=== PATIENT | female | born 1970 | race Caucasian/White ===

== ENCOUNTER 2025-05-07 15:33 | Outpatient (AMB) | payer BC, SELFPAY ==
--- OUTSIDE RECORDS SUMMARY | 2025-03-10 18:31 | XMS_ITS ---
Author Organization [facility] Address [address] [place], [place] [id number] Care Team Providers Care Field Reporter Name Role Phone AGUSTIN BRIAN Primary Care Provider REASON FOR VISIT New Refill Request MEDICATIONS Medication SIG (Take, Route, Fr equency, Duration) Notes Start Date End Date Status Percocet 5-325 MG 1 tablet as needed o rally every 6 hours for pain 03/11/2025 Active Encounters Encounter Location Date Provider Diagnosis [facility] [address] [place] [address] 03/10/2025 AGUSTIN BRIAN PLAN OF TREATMENT Medication Medication Name Sig Start Date Stop Date Notes Percocet 5-325 MG 1 tablet as needed o rally every 6 hours for pain 03/11/2025 Next Appt Details Provider Name:AGUSTIN BRIAN , 08/05/2025 01:00:00 PM, [address] [place], [address],
--- OUTSIDE RECORDS SUMMARY | 2025-03-11 05:07 | XMS_ITS ---
Author Organization [facility] Address [address] [place], [place] [id number] Care Team Providers Care Fusion Analyst Name Role Phone AGUSTIN BRIAN Primary Care Provider [phone] REASON FOR VISIT New Refill Request MEDICATIONS Medication SIG (Take, Route, Fr equency, Duration) Notes Start Date End Date Status Metaxalone 800 MG 1 tablet Orally ever y 8 hrs for 30 days Active Encounters Encounter Location Date Provider Diagnosis [facility] [address] [place] [address] 03/11/2025 AGUSTIN BRIAN PLAN OF TREATMENT Medication Medication Name Sig Start Date Stop Date Notes Metaxalone 800 MG 1 tablet Orally every 8 hrs for 30 days Next Appt Details Provider Name:AGUSTIN BRIAN , 08/05/2025 01:00:00 PM, [address] [place], [address],
--- OUTSIDE RECORDS SUMMARY | 2025-03-11 07:46 | XMS_ITS ---
Author Organization [facility] Address [address] [place], [place] [phone] Care Team Providers Care Reed Maker Name Role Phone AGUSTIN BRIAN Primary Care Provider [phone] REASON FOR VISIT 2/need ok to fill Oxtcodone Encounters Encounter Location Date Provider Diagnosis [address] [address] 03/11/2025 AGUSTIN BRIAN PLAN OF TREATMENT Next Appt Details Provider Name:AGUSTIN BRIAN , 08/05/2025 01:00:00 PM, [address] [place], [address],
--- OUTSIDE RECORDS SUMMARY | 2025-03-26 11:37 | XMS_ITS ---
Author Organization [facility] Address [address] [place], [place] [phone] Care Team Providers Care Marketing Technology Specialist Name Role Phone AGUSTIN BRIAN Primary Care Provider [phone] REASON FOR VISIT New Refill Request MEDICATIONS Medication SIG (Take, Route, Fr equency, Duration) Notes Start Date End Date Status Percocet 5-325 MG 1 tablet as needed o rally every 6 hours for pain 03/27/2025 Active Encounters Encounter Location Date Provider Diagnosis [facility] [address] [place] [phone] 03/26/2025 AGUSTIN BRIAN PLAN OF TREATMENT Medication Medication Name Sig Start Date Stop Date Notes Percocet 5-325 MG 1 tablet as needed o rally every 6 hours for pain 03/27/2025 Next Appt Details Provider Name:AGUSTIN BRIAN , 08/05/2025 01:00:00 PM, [address] [place], [address],
--- OUTSIDE RECORDS SUMMARY | 2025-03-27 09:25 | XMS_ITS ---
Author Organization [facility] Address [address] [place], [place] [phone] Care Team Providers Care Mysql Database Administrator Name Role Phone AGUSTIN BRIAN Primary Care Provider REASON FOR VISIT RE:RE:Sciatica flare up Encounters Encounter Location Date Provider Diagnosis [address] [address] 03/27/2025 AGUSTIN BRIAN PLAN OF TREATMENT Next Appt Details Provider Name:AGUSTIN BRIAN , 08/05/2025 01:00:00 PM, [address] [place], [address],
--- OUTSIDE RECORDS SUMMARY | 2025-04-16 13:13 | XMS_ITS ---
Author Organization [facility] Address [address] [place], [place] [phone] Care Team Providers Care Pasting Inspector Name Role Phone AGUSTIN BRIAN Primary Care Provider [phone] XIOM[place] DE DIOS [phone] REASON FOR VISIT New Refill Request MEDICATIONS Medication SIG (Take, Route, Fr equency, Duration) Notes Start Date End Date Status Percocet 5-325 MG 1 tablet as needed o rally every 6 hours for pain 04/17/2025 Active Encounters Encounter Location Date Provider Diagnosis [facility] [address] [place] [address] 04/16/2025 XIOMARA DE DIOS PLAN OF TREATMENT Medication Medication Name Sig Start Date Stop Date Notes Percocet 5-325 MG 1 tablet as needed o rally every 6 hours for pain 04/17/2025 Next Appt Details Provider Name:AGUSTIN BRIAN , 08/05/2025 01:00:00 PM, [address] [place], [address],
--- OUTSIDE RECORDS SUMMARY | 2025-04-17 03:25 | XMS_ITS ---
Author Organization [facility] Address [address] [place], [place] [phone] Care Team Providers Care Electrical Accessories I Assembler Name Role Phone AGUSTIN BRIAN Primary Care Provider [phone] REASON FOR VISIT New Refill Request MEDICATIONS Medication SIG (Take, Route, Fr equency, Duration) Notes Start Date End Date Status Metaxalone 800 MG 1 tablet Orally ever y 8 hrs for 30 days Active Encounters Encounter Location Date Provider Diagnosis [facility] [address] [place] [address] 04/17/2025 AGUSTIN BRIAN PLAN OF TREATMENT Medication Medication Name Sig Start Date Stop Date Notes Metaxalone 800 MG 1 tablet Orally every 8 hrs for 30 days Next Appt Details Provider Name:AGUSTIN BRIAN , 08/05/2025 01:00:00 PM, [address] [place], [address],
--- OUTSIDE RECORDS SUMMARY | 2025-04-30 07:19 | XMS_ITS ---
Author Organization [facility] Address [address] [place], [place] [phone] Care Team Providers Care Manager Nuclear Name Role Phone AGUSTIN BRIAN Primary Care Provider [phone] REASON FOR VISIT rescheduled appt Encounters Encounter Location Date Provider Diagnosis [facility] [address] [place] [address] 04/30/2025 AGUSTIN BRIAN PLAN OF TREATMENT Next Appt Details Provider Name:AGUSTIN BRIAN , 08/05/2025 01:00:00 PM, [address] [place], [address],
--- OUTSIDE RECORDS SUMMARY | 2025-05-05 07:40 | XMS_ITS ---
Author Organization [facility] Address [address] [place], [place] [phone] Care Team Providers Care Porter Baggage Name Role Phone AGUSTIN BRIAN Primary Care Provider ALLERGIES Allergen (clinical drug ingredient) Drug/Non Drug Allergy documented on EMR Reaction Allergy Type Onset Date Status egg yolk (chicken) allergenic extract Egg White (Diagnostic) Unknown Drug Allergy Active REASON FOR VISIT 3 month follow MEDICATIONS Medication SIG (Take, Route, Frequency, Duration) Notes Start Date End Date Status Gabapentin 600 MG 1 tablet Orally thre e times a day Active Losartan Potassium 100 MG 1 tablet Orally Once a day for 90 days Active Lidocaine 5 % 1 application as nee ded applied topically Once a day 09/18/2008 Active LORazepam 1 MG 1 tablet Orally Once prior to test 07/03/2023 Active Omeprazole 20 MG 1 capsule 30 minutes before morning meal orally once a day Active CPAP Mask Active predniSONE 20 MG 3 tabs at the same t george in the morning for 3 days, then 2 tabs for 3 days, then 1 tab for 3 days Orally Once a day 02/26/2025 Not-Takin g Vitamin D (Cholecalciferol) 25 MCG (1000 UT) 2 capsules Orally Once a day Active Iron (Ferrous Sulfate) 325 (65 Fe) MG 1 tablet Orally Once a day for 30 day(s) Not-Taking CPAP . Active Diclofenac Sodium 3 % 1 application Exte rnally Twice a day 02/26/2025 Active Metaxalone 800 MG 1 tablet Orally ever y 8 hrs for 30 days Active Percocet 5-325 MG 1 tablet as needed orally every 6 hours for pain 04/17/2025 Active SOCIAL HISTORY Tobacco Use: Social History Observation Description Date Details (start date - stop date) Former Smoker NA - NA Sex Assigned At : Social History Observation Description Sex Assigned At Unknown Smoking Question Answer Notes Are you a: former smoker Section Notes: pt smoked 1/2 pack a day, [facility] at age 35 quit cigarettes 05/2023, stopped vaping nicotine 07/2024 VITAL SIGNS Height 62.75 in 05/05/2025 Weight 240 lbs 05/05/2025 Blood pressure systolic 136 mm Hg 05/05/20 25 Blood pressure diastolic 86 mm Hg 025 BMI 42.85 kg/m2 05/05/2025 Encounters Encounter Location Date Provider Diagnosis [facility] [address] [place] [address] 05/05/2025 AGUSTIN BRIAN Essential hypertension I10 ; Type 2 diabetes mellitus without complication, without long-term current use of insulin E11.9 ; BMI 40.0-44.9, adult Z68.41 ; Sacroiliitis, not elsewhere classified M46.1 and Encounter for long-term (current) use of high-risk medication Z79.899 ASSESSMENTS Encounter Date Diagnosis Assessment Notes Treatment Notes Treatment Clinical Notes Section Notes 05/05/2025 Essential hypertension (ICD-10 - I10) Labs ordered. Blood pressure under fair control. Continue losartan 100 mg once a day. Discussed diet, exercise and weight loss. She has lost weight since her last visit and continues to work on this. Recheck in 3 months. Return sooner as needed. 05/05/2025 Type 2 diabetes mellitus without complication, without long-term current use of insulin (ICD-10 - E11.9) Labs ordered. Most recent hemoglobin A1c was 6.0. Discussed diet, exercise and continued weight loss. Encouraged good diabetic diet. Recheck in 3 months. 05/05/2025 BMI 40.0-44.9, adult (ICD-10 - Z68.41) Labs ordered. Continues to work on weight loss with diet and trying to get some more exercise. Limited due to back issues. She has lost weight since her last visit. We will continue to monitor and recheck in 3 months. 05/05/2025 Sacroiliitis, not elsewhere classified (ICD-10 - M46.1) Patient will be following up with physiatry. Continue with metaxalone, lidocaine patch, Percocet as needed. Ice and heat as discussed. Exercises as discussed. 05/05/2025 Encounter for long-term (current) use of high-risk medication (ICD-10 - Z79.899) Urine drug screen ordered. Patient using medication appropriately at this time. We will continue to monitor and recheck in 3 months. PLAN OF TREATMENT Treatment Notes Assessment Notes Essential hypertension Labs ordered. Blo od pressure under fair control. Continue losartan 100 mg once a day. Discussed diet, exercise and weight loss. She has lost weight since her last visit and continues to work on this. Recheck in 3 months. Return sooner as needed. Type 2 diabetes mellitus wit hout complication, without long-term current use of insulin Labs ordered. Most recent hemoglobin A1c was 6.0. Discussed diet, exercise and continued weight loss. Encouraged good diabetic diet. Recheck in 3 months. BMI 40.0-44.9, adult Labs ordered. Shaheen carleyes to work on weight loss with diet and trying to get some more exercise. Limited due to back issues. She has lost weight since her last visit. We will continue to monitor and recheck in 3 months. Sacroiliitis, not elsewhere classified P atient will be following up with physiatry. Continue with metaxalone, lidocaine patch, Percocet as needed. Ice and heat as discussed. Exercises as discussed. Encounter for long-term (cur rent) use of high-risk medication Urine drug screen ordered. Patient using medication appropriately at this time. We will continue to monitor and recheck in 3 months. Pending Test Test Name Order Date XR Hip Right with Pelvis 2-3 views 05/05 Future Test Test Name Order Date Drug Screen 17 w/Conf, [id number] Next Appt Details Follow Up: X-ray ordered ple ase give copy of order. Labs ordered. Continue current treatments as prescribed. Follow-up in 3 months for recheck on medication, diabetes and hypertension and 40-minute slot., Reason: Provider Name:AGUSTIN BRIAN , 08/05/2025 01:00:00 PM, [address] [facility], [place], [address], Progress Notes * Examination Category Sub-Category Detail Notes Category Not es General Examination HEENT: NC/AT, EOMI,PERRL Neck: supple, no lymphaden opathy, no thyromegaly, normal ROM of C spine, non- tender, no carotid bruit, JVP flat Heart: RRR, no murmurs, cli cks or rubs, normal S1S2 Lungs: clear to auscultatio n Abdomen: soft, non tender/non distended Extremities: normal ROM, no clubb ing , cyanosis, or edema General Appearance no apparent distress , pleasant, obese Skin: normal, no rash Neuro alert and oriented x 3, CN 2-12 intact, motor 5/5 bilaterally proximally and distally in all 4 extremities, DTRs 1-2+ in all 4 exremities, sensation light touch intact, ambulates with aid of cane due to back pain. Back: Tenderness with palp ation in the right SI joint and buttock area. Pain is worsened with straight leg raising but no pain radiating down the leg in the office with straight leg raising. No midline bony deformities or drop-offs. No obvious spasms. History and Physical Notes * HPI (History of Present Illness) Category Sub-Category Detail Notes Category Not es General Patient here fo r 3-month follow-up on diabetes, blood pressure, hyperlipidemia, sleep apnea, sacroiliitis with right sided lumbar radiculopathy getting injections from physiatry and medication review due to controlled substances. Patient currently using medications appropriately. Taking Percocet only as needed. Currently on gabapentin 600 mg 3 times a day. Recent injection which seems to have helped but then had reactivated her pain with prolonged sitting and is going back to see physiatry in the next few days. Will get x-ray of her right hip and pelvis just to make sure there is not anything going on and there that is being masked. She continues on losartan 100 mg once a day for her blood pressure which was under fair control today. She is continuing on omeprazole 20 mg daily for GERD. For her back issues she continues on metaxalone 800 mg every 8 hours, Percocet 5/325 mg 1 tablet every 6 hours if needed, lidocaine 5% patch. Currently stable. She does use a CPAP nightly. Here today no acute complaints. Denies any headaches, chest pain, shortness of breath, abdominal pain, nausea, vomiting, diarrhea, blood per rectum, black or tarry stools or any urinary issues.
--- OUTSIDE RECORDS SUMMARY | 2025-05-06 07:40 | XMS_ITS ---
Author Organization [facility] Address [address] [place], [place] [phone] Care Team Providers Care Egg Crater Name Role Phone AGUSTIN BRIAN Primary Care Provider REASON FOR VISIT 3 month follow Encounters Encounter Location Date Provider Diagnosis [facility] [address] [place] [address] 05/06/2025 AGUSTIN BRIAN PLAN OF TREATMENT Next Appt Details Provider Name:AGUSTIN BRIAN , 08/05/2025 01:00:00 PM, [address] [place], [address],
--- NOTE | 2025-05-07 15:34 | A.PHYSOV ---
Vital Signs 05/07/25 15:37 Height 5 ft 2.5 in Weight 240 lb BMI 43.2 Intake Visit Reasons: F/U AFTER INJECTION 04/04/2025 Intake Note: Patient is a 54 year old female here today for follow up after having a right L4 TFESI on 04/04/2025. Textile Converter Required: No Allergies egg (eggs) Allergy (Unknown, Verified 05/07/25 15:38) Unknown HPI Comments Details: Ms. Hennessy is a 54-year-old female seen in evaluation today for lumbar radiculitis to the right lower extremity. Patient underwent right L4 TFESI 04/04/2025 and she reports 30% reduction of her pain. Patient did see 50% reduction of her pain from right SI joint injection in November. She still has a pain level today of 6/10. Her symptoms are worse after standing or sitting for a period of time. She has been using gabapentin for pain. She denies any incontinence, saddle anesthesia urinary retention. Procedure: Right SI joint injection 11/28/2024 50% reduction of her pain Right L4 TFESI 04/04/2025 30% reduction of her pain [facility] Surgical History Previous section Social History Alcohol intake: current Comment: rare Patient Tobacco Use Status: Never used Tobacco Review of Systems Narrative Right-sided low back pain with radiculopathy. No incontinence, saddle anesthesia urinary retention. Physical Exam Exam Exam: Lumbar Spine: Examination of her lumbar spine, there is no visible swelling or deformity. She is tender over the right lower lumbar facets as well as a right SI joint to palpation. She has full range of motion of the lumbar spine. She denies any increase in pain with facet loading. Special Tests: Lhermittes sign was negative Heel Toe walk is normal Left straight leg raise: Negative Right straight leg raise: Negative Special tests Calvin test is negative Ganslen's test is negative SI Joint compression test negative Dillon test negative Piriformis stretch is negative Lower Extremities: Full range of motion bilateral lower extremities. No calf pain or edema. Neuro: Sensation: Intact to lower extremities bilaterally Strength L2 (Psoas): 5/5 on the left and 5/5 on the right. L3 (Quads): 5/5 on the left and 5/5 on the right. L4 (Ant tibialis): 5/5 on the left and 5/5 on the right. L5 (EHL) 5/5 on the left and 5/5 on the right. S1 (Gastroc): 5/5 on the left and 5/5 on the right. DTR L4: (Patellar) Left 2 Right 2 S1: (Achilles) Left 2 Right 2 Babinski Downgoing No pathologic clonus. No involuntary movement. Vital Signs: BMI result Body Mass Index 43.2 Assessment & Plan Assessment & Plan (1) Lumbar radiculitis: Code(s): M54.16 - Radiculopathy, lumbar region Category: Medical (2) Sacroiliitis: Code(s): M46.1 - Sacroiliitis, not elsewhere classified Category: Medical Plan Ms. Hennessy is a 54-year-old female seen in evaluation today for low back pain with radiculopathy. She reports 30% reduction of her pain from right L4 TFESI. She also reports 50% reduction of her pain from right SI joint injection. Patient still feels she is unable to sit or stand for period of time therefore she is requesting accommodation from work paperwork which we will fill out and half filled out for in the past. She will continue her home exercise plan and medications as prescribed. Recommend a course of physical therapy. If her symptoms are not markedly improved I recommend she follow-up with Dr. Brady for 2nd opinion. Thank you for allowing me to participate in the care of your patient. Orders: Orders PT Evaluation and Treatment Today M46.1 - Sacroiliitis, not elsewhere classified, M54.16 - Radiculopathy, lumbar region Coding Level of Care Code Tele Est Pt Level 3 (74774) Diagnoses Lumbar radiculitis M54.16 Sacroiliitis M46.1
[2025-05-07 15:37] VITALS: BMI 43.2
--- OUTSIDE RECORDS SUMMARY | 2025-05-07 20:40 | XMS_ITS | Clinical Summary ---
Author Organization [facility] Address [address] [place] [address] Care Team Providers Care Survey Research Manager Name Role Phone Unavailable Primary Care Provider Unavailabl e Social History Tobacco Use Types Packs/Day Years Used Date Smoking Tobacco: Never Assessed Comments Unknown Sex and Gender Information Value Date Recorded Sex Assigned at Not on file Legal Sex Female 3:01 PM EDT Gender Identity Not on file Sexual Orientation Not on file Plan of Treatment Health Maintenance Due Date Last Done Comments Hepatitis C Screening 1970 Pap Smear 1986 DTaP/Tdap/Td (1 - Tdap) 1988 Hep B (1 of 3 - 19+ 3-dose series) 1989 Mammogram/Breast Imaging 2010 Pneumococcal 50+ years (1 of 1 - PCV) 2020 Zoster (Shingrix) (1 of 2) 2020 COVID-19 Vaccine ( - 2024-2 6 season) 2025 Influenza (#1) 2025 RSV (1 - 1-dose 75+ series) 2045 HPV Vaccine (No Doses Required) Completed Hep A Aged Out No longer eligi ble based on patient's age to complete this topic Hib Aged Out No longer eligi ble based on patient's age to complete this topic Meningococcal ACWY Aged Out No longer eligible based on patient's age to complete this topic
--- OUTSIDE RECORDS SUMMARY | 2025-05-07 20:42 | XMS_ITS | Patient Health Record ---
Author Organization [facility] Address [address] [place], [place] [id number] Care Team Providers Care Parts Clerk Name Role Phone SNEHAL AGUSTIN Primary Care Provider [phone] XIOMARA DE DIOS Unavailable [phone] ALLERGIES Allergen (clinical drug ingredient) Drug/Non Drug Allergy documented on EMR Reaction Allergy Type Onset Date Status egg yolk (chicken) allergenic extract Egg White (Diagnostic) Unknown Drug Allergy Active REASON FOR REFERRAL Reason CHECK WEBSITE w appt Right-sided acute sacroiliitis with right-sided sciatica. Evaluate for injection. Diagnosis 1 Sacroiliitis, not el sewhere classified (M46.1) Diagnosis 2 Sciatica of right si de (M54.31) Referral Organization [facility] Referring Provider First Name AGUSTIN Referring Provider Last Name SNEHAL Referring Provider Speciality Internal M edicine Referred Provider IRAIS YOUNG Referred Provider Specialty Physical Med icine and Rehabilitation General Notes Robyn ROMERO P Admin 07/2024 03:33:22 PM > faxed medical referral, note and most recent labs requesting URGENT appt for pt [phone], Robyn ROMERO P Admin 10/21/2024 08:42:59 AM > per incoming document office is requesting a referral in order to book appt> M46.1>Npi# [id number]>start date 10/16/24>12 visits, [employer] website says, Authorization Status: In ProgressReason: Coordinator Review, Decision:Reference#: [id number], Procedure Status: [id number]:Not Decisioned, will check tomorrow for approval/denial, HEATHER,Asia Jorge Referrals 10/24/2024 03:43:38 PM > referral approved and faxed to [phone] Referral Priority Urgent MEDICATIONS Medication SIG (Take, Route, Frequency, Duration) Notes Start Date End Date Status CPAP Mask Active predniSONE 20 MG 3 tabs at the same t george in the morning for 3 days, then 2 tabs for 3 days, then 1 tab for 3 days Orally Once a day 02/26/2025 Not-Takin g Gabapentin 600 MG 1 tablet Orally thre e times a day Active Vitamin D (Cholecalciferol) 25 MCG (1000 UT) 2 capsules Orally Once a day Active Iron (Ferrous Sulfate) 325 (65 Fe) MG 1 tablet Orally Once a day for 30 day(s) Not-Taking Diclofenac Sodium 3 % 1 application Exte rnally Twice a day 02/26/2025 Active Lidocaine 5 % 1 application as nee ded applied topically Once a day 09/18/2008 Active Metaxalone 800 MG 1 tablet Orally ever y 8 hrs for 30 days Active CPAP . Active Losartan Potassium 100 MG 1 tablet Orally Once a day for 90 days Active Percocet 5-325 MG 1 tablet as needed orally every 6 hours for pain 04/17/2025 Active Omeprazole 20 MG 1 capsule 30 minutes before morning meal orally once a day Active LORazepam 1 MG 1 tablet Orally Once prior to test 07/03/2023 Active IMMUNIZATIONS Vaccine Route Administration Date Status Comme nts Tdap (Adacel)11-64,State Supplied IM Intramuscular 03/19/2007 Administered Tdap (Adacel) IM Intramuscular 08/05/2020 Administered Influenza, Fluzone QUAD, 3+ yrs, IM Intramuscular 05/18/2017 Administered Influenza, Fluzone QUAD, 3+ yrs, IM Intramuscular 03/07/2019 Administered Influenza, Fluzone Quad Unknown 03/12/2018 Administered Influenza, Fluzone Quad Unknown 02/26/2020 Administered FLU- FLUVIRIN, PRE-FILLED SYRINGE 0.5 ml IM Intramuscular 04/28/2014 Administered SOCIAL HISTORY Tobacco Use: Social History Observation Description Date Details (start date - stop date) Former Smoker NA - NA Sex Assigned At : Social History Observation Description Sex Assigned At Unknown Smoking Question Answer Notes Are you a: former smoker Section Notes: pt smokes 1/2 pack a day pt smokes 1/2 pack a day, [facility] at age 35 pt smoked 1/2 pack a day, [facility] at age 35 quit cigarettes 05/2023, stopped vaping nicotine 07/2024 pt smokes 1/2 pack a day, [facility] art[facility] at age 35 pt smoked 1/2 pack a day, [facility] arted at age 35 quit cigarettes 05/2023, stopped vaping nicotine 07/2024 pt smoked 1/2 pack a day, [facility] arted at age 35 quit cigarettes 05/2023, stopped vaping nicotine 07/2024 pt smokes pt smoked 1/2 pack a day, [facility] arted at age 35 quit cigarettes 05/2023, stopped vaping nicotine 07/2024 pt smokes 1 pack a day pt smokes PROBLEMS Problem Type ICD Code Onset Dates Problem Status W/U Status Risk SNOMED Code Notes Problem Essential hypertension (I10) Active confirmed 60930492 Problem Obstructive sleep apnea (G47.33) Active confirmed 88968730 Problem Sciatica (M54.30) Active confirmed Scia mayur (41292492) Problem Tobacco abuse (Z72.0) Active confirmed 427605434 Problem Morbid (severe) obesity due to excess calories (E66.01) Active confirmed 442333784 Problem Mixed hyperlipidemia (E78.2) Active confirmed 773246919 Problem Sacroiliitis, not elsewhere classified (M46.1) Active confirmed 26886984 Problem Anxiety (F41.9) Active confirmed 386243 02 Problem Morbid obesity due to excess calories (E66.01) Active confirmed 080351980 Problem Iron deficiency anemia due to chronic blood loss (D50.0) Active confirmed 827680321 Problem Right leg pain (M79.604) Active confirmed Pain in right l eg (732478135) Problem Back pain with right-sided sciatica (M54.31) Active confirmed 664040929 Problem BMI 40.0-44.9, adult (Z68.41) Active confirmed 574040772 Problem Moderate episode of recurrent major depressive disorder (F33.1) Active confirmed 756799212 Problem Type 2 diabetes mellitus without complication, without long-term current use of insulin (E11.9) Active confirmed 116073867 Problem Body mass index [BMI] 50.0-59.9, adult (Z68.43) Active confirmed 762200864 Problem Obesity, class 3 (E66.813) Active confirmed [id number] VITAL SIGNS Blood pressure diastolic 86 mm Hg 05/05/2025 Height 62.75 in 05/05/2025 Blood pressure systolic 136 mm Hg 05/05/2025 Weight 240 lbs 05/05/2025 BMI 42.85 kg/m2 05/05/2025 Encounters Encounter Location Date Provider Diagnosis [place] [id number] 06/25/2024 AGUSTIN BRIAN [address] 10/16/2024 AGUSTIN BRIAN Type 2 diabetes mellitus without complication, without long-term current use of insulin E11.9 ; Essential hypertension I10 ; Mixed hyperlipidemia E78.2 ; Morbid obesity due to excess calories E66.01 and Sacroiliitis, not elsewhere classified M46.1 [place] [id number] 10/17/2024 AGUSTIN BRIAN Sacroiliitis, not elsewhere classified M46.[address] [address] 10/20/2024 AGUSTIN BRIAN [address] [address] 10/20/2024 AGUSTIN BRIAN [address] [address] 10/20/2024 AGUSTIN BRIAN [address] [address] 10/22/2024 AGUSTIN BRIAN [address] [address] 10/22/2024 AGUSTIN BRIAN [address] [address] 10/24/2024 AGUSTIN BRIAN [address] [address] 10/24/2024 AGUSTIN BRIAN [address] [address] 10/27/2024 AGUSTIN BRIAN [address] [address] 10/27/2024 [address]IN [address]RIAN [address] [place] [address] 10/28/2024 AGUSTIN BRIAN [facility] [address] [place] [address] 10/29/2024 AGUSTIN BRIAN [facility] [address] [place] [address] 10/30/2024 AGUSTIN BRIAN [facility] [address] [place] [address] 10/30/2024 AGUSTIN BRIAN [facility] [address] [place] [address] 10/30/2024 AGUSTIN BRIAN [facility] [address] [place] [address] 11/04/2024 AGUSTIN BRIAN Sacroiliitis, not elsewhere classified M46.1 ; Intractable low back pain M54.59 and Back pain with right-sided sciatica M54.31 [facility] [address] [address] 11/04/2024 AGUSTIN BRIAN [facility] [address] [place] [address] 2024 AGUSTIN BRIAN [facility] [address] [address] 11/11/2024 AGUSTIN BRIAN [address] [address] 11/20/2024 AGUSTIN BRIAN [facility] [address] [address] 11/24/2024 AGUSTIN BRIAN Intractable low back pain M54.[address] [address] 11/25/2024 AGUSTIN BRIAN [facility] [address] [address] 12/24/2024 AGUSTIN BRIAN [address] [address] 01/16/2025 AGUSTIN BRIAN Essential hypertensi on I10 ; Type 2 diabetes mellitus without complication, without long-term current use of insulin E11.9 ; Mixed hyperlipidemia E78.2 ; Iron deficiency anemia due to chronic blood loss D50.0 and BMI 40.0-44.9, adult Z68.41 [facility] [address] [place] [address] 01/26/2025 XIOMARA [facility] [address] [place] [address] 01/30/2025 AGUSTINANÍBAL LARASON [facility] [address] [place] [address] 02/09/2025 AGUSTIN BRIAN [facility] [address] [place] [address] 02/17/2025 XIOMARA [facility] [address] [place] [address] 02/17/2025 AGUSTIN BRIAN [facility] [address] [place] [address] 02/18/2025 AGUSTIN BRIAN [facility] [address] [place] [address] 02/25/2025 AGUSTIN BRIAN [facility] [address] [place] [address] 02/25/2025 AGUSTINANÍBAL LARASON [facility] [address] [place] [address] 02/26/2025 AGUSTIN BRIAN [facility] [address] [place] [address] 03/10/2025 AGUSTINANÍBAL LARASON [facility] [address] [place] [address] 03/11/2025 AGUSTINANÍBAL LARASON [facility] [address] [place] [address] 03/11/2025 AGUSTIN BRIAN [facility] [address] [place] [address] 03/26/2025 AGUSTINANÍBAL BRIAN [facility] [address] [place] [address] 03/27/2025 AGUSTIN BRIAN [facility] [address] [place] [address] 04/16/2025 XIOMARA [facility] [address] [place] [address] 04/17/2025 AGUSTIN BRIAN [facility] [address] [place] [address] 04/30/2025 AGUSTIN BRIAN [facility] [address] [place] [address] 05/05/2025 AGUSTIN BRIAN Essential hypertensi on I10 ; Type 2 diabetes mellitus without complication, without long-term current use of insulin E11.9 ; BMI 40.0-44.9, adult Z68.41 ; Sacroiliitis, not elsewhere classified M46.1 and Encounter for long-term (current) use of high-risk medication Z79.[address] [address] 05/06/2025 AGUSTIN BRIAN ASSESSMENTS Encounter Date Diagnosis Assessment Notes Treatment Notes Treatment Clinical Notes Section Notes 11/24/2024 Intractable low back pain (ICD-10 - M54.59) 11/04/2024 Intractable low back pain (ICD-10 - M54.59) Patient with intractable lower back pain with right-sided radiculopathy and weakness in both legs. MRI ordered. Patient has appointment pending with physiatry for November 14, 2024. Continue gabapentin and Skelaxin as prescribed. Percocet if needed. Ice and heat to area as discussed. Gentle stretching and range of motion. Further treatment will be based on physiatry evaluation. Patient given FMLA paperwork. 11/04/2024 Sacroiliitis, not elsewhere classified (ICD-10 - M46.1) Patient with intractable lower back pain with right-sided radiculopathy and weakness in both legs. MRI ordered. Patient has appointment pending with physiatry for November 14, 2024. Continue gabapentin and Skelaxin as prescribed. Percocet if needed. Ice and heat to area as discussed. Gentle stretching and range of motion. Further treatment will be based on physiatry evaluation. Patient given FMLA paperwork. 10/17/2024 Sacroiliitis, not elsewhere classified (ICD-10 - M46.1) 01/16/2025 Type 2 diabetes mellitus without complication, without long-term current use of insulin (ICD-10 - E11.9) Labs ordered. Not on current medication has been controlling with diet. Discussed diet and exercise and weight loss. Further treatment will be based on test results. Follow-up in 3 months. 05/05/2025 Essential hypertension (ICD-10 - I10) Labs ordered. Blood pressure under fair control. Continue losartan 100 mg once a day. Discussed diet, exercise and weight loss. She has lost weight since her last visit and continues to work on this. Recheck in 3 months. Return sooner as needed. 01/16/2025 Essential hypertension (ICD-10 - I10) Labs ordered. Continue losartan 100 mg daily. Follow-up in 3 months for recheck on blood pressure. If blood pressure remains elevated will need to consider adding medication. In the meantime patient will be working on diet and exercise as best as possible and continue to work on weight loss. Avoiding salt encouraged. 05/05/2025 Type 2 diabetes mellitus without complication, without long-term current use of insulin (ICD-10 - E11.9) Labs ordered. Most recent hemoglobin A1c was 6.0. Discussed diet, exercise and continued weight loss. Encouraged good diabetic diet. Recheck in 3 months. 10/16/2024 Essential hypertension (ICD-10 - I10) Blood pressure is under fair control today. Patient will hold diltiazem and continue losartan 100 mg daily. Discussed diet and exercise and weight loss. Labs ordered. Recheck in 3 months. Return sooner if needed. 10/16/2024 Type 2 diabetes mellitus without complication, without long-term current use of insulin (ICD-10 - E11.9) Patient currently not on medication. Last hemoglobin A1c in March 2024 was 7.6. Patient has been making some major lifestyle changes in the last several months and has lost 35 pounds. Labs ordered. Further treatment will be based on test results. Discussed diet and exercise and continued weight loss. Recheck in 3 months. 05/05/2025 BMI 40.0-44.9, adult (ICD-10 - Z68.41) Labs ordered. Continues to work on weight loss with diet and trying to get some more exercise. Limited due to back issues. She has lost weight since her last visit. We will continue to monitor and recheck in 3 months. 11/04/2024 Back pain with right-sided sciatica (ICD-10 - M54.31) See sacroiliitis plan. 01/16/2025 Mixed hyperlipidemia (ICD-10 - E78.2) Not on current statin. Last lipid panel showed elevation of LDL at 160 with elevated total cholesterol of 225. Labs ordered and further treatment can be based on test results. Discussed diet, exercise and weight loss. Will continue to monitor. 10/16/2024 Mixed hyperlipidemia (ICD-10 - E78.2) Labs ordered. Discussed diet and exercise and continued weight loss. Will continue to monitor and adjust treatment as indicated. 10/16/2024 Morbid obesity due to excess calories (ICD-10 - E66.01) Patient continues with lifestyle modifications with 35 pound weight loss since her last visit. She continues to work on diet and exercise. We will continue to monitor and recheck in 3 months. 05/05/2025 Sacroiliitis, not elsewhere classified (ICD-10 - M46.1) Patient will be following up with physiatry. Continue with metaxalone, lidocaine patch, Percocet as needed. Ice and heat as discussed. Exercises as discussed. 01/16/2025 Iron deficiency anemia due to chronic blood loss (ICD-10 - D50.0) Labs ordered. Has not been having any heavy bleeding recently. Patient has not been taking iron. Last CBC showed no evidence of anemia. Currently stable. 01/16/2025 BMI 40.0-44.9, adult (ICD-10 - Z68.41) Patient is lost 10 pounds since her last visit. She is working on diet and trying to get some exercise. We will continue to monitor. 10/16/2024 Sacroiliitis, not elsewhere classified (ICD-10 - M46.1) Referral to physiatry placed. Prednisone taper as discussed. Ice and heat to back as discussed. Gentle stretching as noted. Skelaxin as prescribed if needed. Follow-up after physiatry as needed. 05/05/2025 Encounter for long-term (current) use of high-risk medication (ICD-10 - Z79.899) Urine drug screen ordered. Patient using medication appropriately at this time. We will continue to monitor and recheck in 3 months. PLAN OF TREATMENT Pending Test Test Name Order Date Sleep Study (Home) 08/05/2020 Colonoscopy [facility] 08/04/2022 mammogram, BILATERAL 05/31/2012 XR Hip Right with Pelvis 2-3 views 05/05 CBC W/OUT AUTOMATED DIFF 04/21/2021 URINALYSIS WITH REFLEX MICROSCOPIC 04/21 AST ( SGOT) 11/30/2021 ALT(DO NOT USE) 11/30/2021 Future Test Test Name Order Date Mammogram, bilateral, screening 11/26/19 15 XR : KNEE 3 views LEFT -SMA 11/25/2014 XR : KNEE 3 views RIGHT -SMA 11/25/2014 Urine Microalbumin(Creat/MALB Ratio) 08/2018 LIPID PROFILE 10/09/2019 GLYCOHEMOGLOBIN (HBA1C) 10/09/2019 CBC W/OUT AUTOMATED DIFF 10/09/2019 COMP. METABOLIC 10/09/2019 Urine Microalbumin(Creat/MALB Ratio) TSH WITH REFLEX TO FT4 10/09/2019 CCOV19 (BRL) 12/23/2019 LIPID PROFILE 03/30/2022 GLYCOHEMOGLOBIN (HBA1C) 03/30/2022 COMP. METABOLIC 03/30/2022 Urine Microalbumin(Creat/MALB Ratio) Drug Screen 17 w/Conf, [id number] Next Appt Details Provider Name:AGUSTIN BRIAN , 08/05/2025 01:00:00 PM, [address] [place] [address], [phone], Insurance Providers Payer Name Payer Address Payer Phone Subscriber Number Group Number Insured Name Patient Relationship to Insured Coverage Start Date Coverage End Date [employer] [address] [place] [address] [phone] [id number] MANJINDER VARGAS Self - patient is the insured 2021 MEDICAL (GENERAL) HISTORY Medical History History ICD Code Genital Warts Gestational DM HSV-Oral Herpes Depression sleep apnea; wears CPAP and follows with Dr. Guillory elevated indirect bili; normal u/s. c/w Gilbert's syndrome depression hypertension impaired fasting glucose Surgical History Surgery Date(Month/Year) Sarles teeth extraction 2 C-Sections Hospitalization History Reason Date(Month/Year)
== END 2025-05-07 16:09 | disposition home or self-care (01) ==
LOC: HO.HPHYS 15:33
PROVIDERS: PCP Physician Assistant; Visit Provider Physician Assistant
DX: M54.16 Radiculopathy, lumbar region (principal); M46.1 Sacroiliitis, not elsewhere classified
CPT/HCPCS: 99213

== ENCOUNTER 2025-06-09 14:15 | Outpatient (AMB) | payer BC, SELFPAY ==
--- OUTSIDE RECORDS SUMMARY | 2024-06-25 07:40 | XMS_ITS ---
Author Organization [facility] Address [address] [place] [phone] Care Team Providers Care Haircutter Name Role Phone AGUSTIN BRIAN Primary Care Provider REASON FOR VISIT PG/3mo f/u dm Encounters Encounter Location Date Provider Diagnosis [address] [address] 06/25/2024 AGUSTIN BRIAN Plan Of Treatment Next Appt Details Provider Name:AGUSTIN MULLEN, 08/05/2025 01:00:00 PM, [address] [place], [address], Progress Notes * ALICIAVALA VDOB: 1 (54 yo F)Acc No.[id number]:06/25/2024 Progress Notes Patient: VAL DURANTAly Morillo Provider: Georgette DOTSON :1970 A ge:53 Y S ex:Female Date:06/25/2024 Address:[address] [place], [place] [id number] Subjective: * Chief Complaints: * P G/3mo f/u dm Billing Information: * Procedure Codes: * Electronic signature of CAMILLA RBIAN PA-C. [facility] on 06/09/2025 at 03:32 PM EST Sign off status: Pending * Provider: Georgette DOTSON Date: 0 06/25/2024 Generated for Tristan muñoz/Vikki/Dagoberto on: 1 08/10/2024 03:32 PM EST
--- OUTSIDE RECORDS SUMMARY | 2025-05-06 07:40 | XMS_ITS ---
Author Organization [facility] Address [address] [place] [address] Care Team Providers Care Radiotelephone Technical Operator Name Role Phone AGUSTIN BRIAN Primary Care Provider [phone] REASON FOR VISIT 3 month follow Encounters Encounter Location Date Provider Diagnosis [address] [address] 05/06/2025 AGUSTIN BRIAN Plan Of Treatment Next Appt Details Provider Name:AGUSTIN MULLEN, 08/05/2025 01:00:00 PM, [address] [place], [address], Progress Notes * MANJINDER VARGAS VDOB: [birth year] (54 yo F)Acc No.[id number]:05/06/2025 Progress Notes Patient: MANJINDER DURANT Ilia Provider: Georgette DOTSON :1970 A ge:54 Y S ex:Female Date:05/06/2025 Address:[address] [place], [place] [id number] Subjective: * Chief Complaints: * 3 month follow * Electronic signature of RENETTA PERDOMO on 06/09/2025 at 03:32 PM EST Sign off status: Pending * Provider: Georgette DOTSON Date: 07/06/2024 Generated for Tristan muñoz/Vikki/eTransmitting on: 1 08/10/2024 03:32 PM EST
[2025-06-09 14:23] VITALS: BMI 43.6
--- NOTE | 2025-06-09 14:23 | A.PHYSOV ---
Vital Signs 06/09/25 14:23 Height 5 ft 2.5 in Weight 242 lb BMI 43.6 Intake Visit Reasons: re-eval for work clearance Intake Note: Patient is a 54 year old female here for follow up on lower back pain and to have paperwork filled out. 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 She reports a history of a pain episode two years ago that healed on its own within a week, but she experienced a major episode in October that left her bed-bound for over a month. Her condition currently causes significant functional limitations. She states she is unable to drive at all and cannot sit or walk for longer than 15 minutes. She must alternate between sitting and standing every 15 minutes, has difficulty with prolonged standing, and cannot perform lifting. She reports she can walk but with a limp. Her current pain management regimen includes scheduled gabapentin, Skelaxin, and Percocet for as-needed use. She has also recently begun physical therapy, having attended her first session last week. 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 Pain Description - Onset: The patient had a minor episode two years ago that resolved in a week, followed by a major episode in October where she was bedridden for over a month. - Quality: The patient described being too sore to sit. - Exacerbating factors: Sitting for more than 15 minutes, walking for more than 15 minutes, prolonged standing, and driving. - Relieving factors: Pacing and alternating between sitting and standing every 15 minutes. - Interference with function: The pain prevents her from driving, sitting for extended periods, lifting, and walking more than 15 minutes, impacting her ability to perform job duties that require mobility. Procedure: Right SI joint injection 11/28/2024 50% reduction of her pain Right L4 TFESI 04/04/2025 30% reduction of her pain [facility] Surgical History Previous section Social History Alcohol intake: current Comment: rare Patient Tobacco Use Status: Never used Tobacco Review of Systems Narrative Review of Systems - Constitutional: Reports being too sore to sit and needing to pace. - Musculoskeletal: Reports inability to lift. - Neurological: Reports ability to walk, though with a limp. - /GI: Reports retention of all bodily functions. Physical Exam Exam Exam: Lumbar Spine: Examination of her lumbar spine, there is no visible swelling or deformity. She is tender over the right lower lumbar facets as well as a right SI joint to palpation. She has full range of motion of the lumbar spine. She denies any increase in pain with facet loading. Special Tests: Lhermittes sign was negative Heel Toe walk is normal Left straight leg raise: Negative Right straight leg raise: Negative Special tests Calvin test is negative Ganslen's test is negative SI Joint compression test negative Dillon test negative Piriformis stretch is negative Lower Extremities: Full range of motion bilateral lower extremities. No calf pain or edema. Neuro: Sensation: Intact to lower extremities bilaterally Strength L2 (Psoas): 5/5 on the left and 5/5 on the right. L3 (Quads): 5/5 on the left and 5/5 on the right. L4 (Ant tibialis): 5/5 on the left and 5/5 on the right. L5 (EHL) 5/5 on the left and 5/5 on the right. S1 (Gastroc): 5/5 on the left and 5/5 on the right. DTR L4: (Patellar) Left 2 Right 2 S1: (Achilles) Left 2 Right 2 Babinski Downgoing No pathologic clonus. No involuntary movement. Vital Signs: BMI result Body Mass Index 43.6 Assessment & Plan Assessment & Plan (1) Lumbar radiculitis: Code(s): M54.16 - Radiculopathy, lumbar region Category: Medical (2) Sacroiliitis: Code(s): M46.1 - Sacroiliitis, not elsewhere classified Category: Medical Plan Pain Management - Analgesia: The patient takes scheduled gabapentin, Skelaxin, and uses Percocet on an as-needed basis. - Activities of Daily Living: Her pain significantly impacts her function, making her unable to drive, sit or walk for more than 15 minutes, or perform lifting. - Other treatments: She recently started physical therapy. Plan Patient was informed and verbally consented to the use of an ambient scribe for clinic note documentation during this visit. 1. Chronic Pain Syndrome The patient's chronic pain significantly impacts her functional abilities, necessitating workplace accommodations. Paperwork was completed to support her request to continue working from home. The specified restrictions include no driving, no lifting, no prolonged sitting or walking beyond 15 minutes, and the requirement to alternate between sitting and standing every 15 minutes. These limitations are documented as temporary, with a provisional end date of December 15 of the following year, with hopes for improvement. She will continue her current management plan, which includes scheduled gabapentin, Skelaxin, Percocet PRN, and ongoing physical therapy. Discussion Notes I discussed the patient's functional limitations due to her chronic pain and completed the necessary paperwork for her employer. I documented restrictions including no driving, no lifting, and limiting sitting and walking to 15-minute intervals. We agreed to set the accommodation as temporary, lasting approximately six months until December 15, as she is hopeful for improvement. I confirmed that she is to continue her current treatment regimen, including medications and physical therapy, to manage her condition. Patient Instructions - Submit the completed paperwork to your employer to continue working from home. - Do not drive. - Avoid sitting or walking for more than 15 minutes at a time. - Make sure to switch between a sitting and standing position about every 15 minutes. - Do not do any heavy lifting. - Continue taking your medications as prescribed, including gabapentin, Skelaxin, and Percocet when needed. - Continue attending your physical therapy sessions. Coding Level of Care Code Tele Est Pt Level 3 (56908) Diagnoses Lumbar radiculitis M54.16 Sacroiliitis M46.1
--- OUTSIDE RECORDS SUMMARY | 2025-06-09 15:32 | XMS_ITS | Clinical Summary ---
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
--- OUTSIDE RECORDS SUMMARY | 2025-06-09 15:33 | XMS_ITS | Patient Health Record ---
Author Organization [facility] Address [address] [place] [address] Care Team Providers Care Maintainer Central Office Name Role Phone BRIANAGUSTIN MULLEN Primary Care Provider [phone] XIOMARA DE DIOS Unavailable [phone] Allergies Allergen (clinical drug ingredient) Drug/Non Drug Allergy documented on EMR Reaction Allergy Type Onset Date Status egg yolk (chicken) allergenic extract Egg White (Diagnostic) Unknown Drug Allergy Active Reason For Referral Reason CHECK WEBSITE w appt Right-sided acute sacroiliitis with right-sided sciatica. Evaluate for injection. Diagnosis 1 Sacroiliitis, not el sewhere classified (M46.1) Diagnosis 2 Sciatica of right si de (M54.31) Referral Organization [facility] Referring Provider First Name AGUSTIN Referring Provider Last Name SNEHAL Referring Provider Speciality Internal M edicine Referred Provider IRAIS YOUNG Referred Provider Specialty Physical Med icine and Rehabilitation General Notes Robyn ROMERO Admin 07/2024 03:33:22 PM > faxed medical referral, note and most recent labs requesting URGENT appt for pt [phone], Robyn ROMERO P Admin 10/21/2024 08:42:59 AM > per incoming document office is requesting a referral in order to book appt> M46.1>Npi# [id number]>start date 10/16/24>12 visits, [employer] website says, Authorization Status: In ProgressReason: Coordinator Review, Decision:Reference#: [id number], Procedure Status: [id number]:Not Decisioned, will check tomorrow for approval/denial, HEATHER,Asia Jorge Referrals 10/24/2024 03:43:38 PM > referral approved and faxed to [phone] Referral Priority Urgent Medications Medication SIG (Take, Route, Frequency, Duration) Notes Start Date End Date Status CPAP Mask Mask Activ e predniSONE 20 MG Tablet 3 tabs at the same time in the morning for 3 days, then 2 tabs for 3 days, then 1 tab for 3 days Orally Once a day 02/26/2025 Not-Taking Vitamin D (Cholecalciferol) 25 MCG (1000 UT) Capsule 2 capsules Orally Once a day Active Iron (Ferrous Sulfate) 325 (65 Fe) MG Tablet 1 tablet Orally Once a day; Duration: 30 day(s) Not-Taking Diclofenac Sodium 3 % Gel 1 application Externally Twice a day 02/26/2025 Active Lidocaine 5 % Ointment 1 application as needed applied topically Once a day 09/18/2008 Active CPAP . device Active Losartan Potassium 100 MG Tablet 1 tablet Orally Once a day; Duration: 90 days Active Omeprazole 20 MG Capsule Delayed Release 1 capsule 30 minutes before morning meal orally once a day Active Percocet 5-325 MG Tablet 1 tablet as needed orally every 6 hours for pain Partial Fill upon Patient Request 06/01/2025 Active Metaxalone 800 MG Tablet 1 tablet Orally every 8 hrs; Duration: 60 days Active Gabapentin 600 MG Tablet 1 tablet Orally three times a day; Duration: 90 days Active LORazepam 1 MG Tablet 1 tablet Orally Once prior to test 07/03/2023 Active Immunizations Vaccine Route Administration Date Status Comme nts FLU- FLUVIRIN, PRE-FILLED SYRINGE 0.5 ml IM Intramuscular 04/28/2014 Administered Influenza, Fluzone Quad Unknown 03/12/2018 Administered Influenza, Fluzone Quad Unknown 02/26/2020 Administered Influenza, Fluzone QUAD, 3+ yrs, IM Intramuscular 05/18/2017 Administered Influenza, Fluzone QUAD, 3+ yrs, IM Intramuscular 03/07/2019 Administered Tdap (Adacel) IM Intramuscular 08/05/2020 Administered Tdap (Adacel)11-64,State Supplied IM Intramuscular 03/19/2007 Administered Social History Tobacco Use: Social History Observation Description Date Details (start date - stop date) Former Smoker NA - NA Social History Tobacco Use: Social Info Question Answer Notes Smoking Are you a: former smoker Additional Details Category Social Info Options Details General 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 - [employer] 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: no Past year's travels: none 2022 alcohol use: yes rare; less than once a month drug use: no Hobbies/Exercise habits: none Coffee/Tea/Soda: no Diet Soda (rare ) Marital Status engaged experience no Living with Fiance, son and daughter Pets 1 Dog & 2 Cat smokers in household yes fiance smok es in bathroom with window open Section Notes: pt smokes pt smokes 1/2 pack a day pt smoked 1/2 pack a day, [facility] at age 35 quit cigarettes 05/2023, stopped vaping nicotine 07/2024 pt smokes 1/2 pack a day, [facility] at age 35 pt smokes 1/2 pack a day, [facility] at age 35 pt smoked 1/2 pack a day, [facility] at age 35 quit cigarettes 05/2023, stopped vaping nicotine 07/2024 pt smokes 1 pack a day pt smokes pt smoked 1/2 pack a day, [facility] at age 35 quit cigarettes 05/2023, stopped vaping nicotine 07/2024 pt smoked 1/2 pack a day, [facility] [employer] at age 35 quit cigarettes 05/2023, stopped vaping nicotine 07/2024 Problems Problem Type SNOMED Code ICD Code Onset Dates Problem Status W/U Status Risk Notes Problem Essential hypertension (83592884) Essential hypertension (I10) Active confirmed Problem Obstructive sleep apnea (97919172) Obstructive sleep apnea (G47.33) Active confirmed Problem Sciatica (31558250) Sciatica (M54.30) Active confirmed Problem Tobacco abuse (7315095955) Tobacco abuse (Z72.0) Active confirmed Problem Morbid obesity (disorder) (394600045) Morbid (severe) obesity due to excess calories (E66.01) Active confirmed Problem Mixed hyperlipidemia (202700471) Mixed hyperlipidemia (E78.2) Active confirmed Problem Solitary sacroiliitis (818279546) Sacroiliitis, not elsewhere classified (M46.1) Active confirmed Problem Anxiety (63339329) Anxiety (F41.9) Active confirmed Problem Morbid obesity (318297730) Morbid obesity due to excess calories (E66.01) Active confirmed Problem Iron deficiency anemia due to chronic blood loss (051615988) Iron deficiency anemia due to chronic blood loss (D50.0) Active confirmed Problem Pain in right leg (644286313) Right leg pain (M79.604) Active confirmed Problem Sciatica (73699664) Back pain with right-sided sciatica (M54.31) Active confirmed Problem Body mass index 40+ - morbidly obese (489708688) BMI 40.0-44.9, adult (Z68.41) Active confirmed Problem Moderate recurrent major depression (36233282) Moderate episode of recurrent major depressive disorder (F33.1) Active confirmed Problem Type II diabetes mellitus without complication (293159208) Type 2 diabetes mellitus without complication, without long-term current use of insulin (E11.9) Active confirmed Problem Body mass index 40+ - morbidly obese (271549421) Body mass index [BMI] 50.0-59.9, adult (Z68.43) Active confirmed Problem Obese class III (finding) (323551100) Obesity, class 3 (E66.813) Active confirmed Vital Signs Blood pressure diastolic 86 mm Hg 05/05/2025 Height 62.75 in 05/05/2025 Blood pressure systolic 136 mm Hg 05/05/2025 Weight 240 lbs 05/05/2025 BMI 42.85 kg/m2 05/05/2025 Encounters Encounter Location Date Provider Diagnosis [address] [address] 05/05/2025 AGUSTIN BRIAN Essential hypertensi on I10 ; Type 2 diabetes mellitus without complication, without long-term current use of insulin E11.9 ; BMI 40.0-44.9, adult Z68.41 ; Sacroiliitis, not elsewhere classified M46.1 and Encounter for long-term (current) use of high-risk medication Z79.[address] [address] 01/16/2025 AGUSTIN BRIAN Essential hypertensi on I10 ; Type 2 diabetes mellitus without complication, without long-term current use of insulin E11.9 ; Mixed hyperlipidemia E78.2 ; Iron deficiency anemia due to chronic blood loss D50.0 and BMI 40.0-44.9, adult Z68.[address] [address] 11/04/2024 AGUSTIN BRIAN Sacroiliitis, not elsewhere classified M46.1 ; Intractable low back pain M54.59 and Back pain with right-sided sciatica M54.31 [facility] [address] [place] [address] 10/16/2024 AGUSTIN BRIAN Type 2 diabetes mellitus without complication, without long-term current use of insulin E11.9 ; Essential hypertension I10 ; Mixed hyperlipidemia E78.2 ; Morbid obesity due to excess calories E66.01 and Sacroiliitis, not elsewhere classified M46.1 [facility] [address] [place] [address] 02/18/2025 AGUSTIN BRIAN [facility] [address] [place] [address] 11/11/2024 AGUSTIN BRIAN [facility] [address] [place] [address] 11/04/2024 AGUSTIN BRIAN [facility] [address] [place] [address] 10/30/2024 AGUSTIN BRIAN [facility] [address] [place] [address] 10/28/2024 AGUSTIN BRIAN [facility] [address] [place] [address] 10/24/2024 AGUSTIN BRIAN [facility] [address] [place] [address] 10/24/2024 AGUSTIN BRIAN [facility] [address] [place] [address] 05/30/2025 AGUSTIN BRIAN [facility] [address] [place] [address] 05/20/2025 AGUSTIN BRIAN [facility] [address] [place] [address] 05/18/2025 AGUSTIN BRIAN [facility] [address] [place] [address] 05/17/2025 AGUSTIN BRIAN [facility] [address] [place] [address] 05/17/2025 AGUSTIN BRIAN [facility] [address] [place] [address] 05/11/2025 AGUSTIN BRIAN [facility] [address] [place] [address] 04/17/2025 AGUSTINANÍBAL BRIAN [facility] [address] [place] [address] 04/16/2025 XIOMARA DE DIOS [facility] [address] [place] [address] 03/27/2025 AGUSTINANÍBAL LARASON [facility] [address] [place] [address] 03/26/2025 AGUSTINANÍBAL LARASON [facility] [address] [place] [address] 03/11/2025 AGUSTINANÍBAL LARASON [facility] [address] [place] [address] 03/10/2025 AGUSTINANÍBAL LARASON [facility] [address] [place] [address] 02/26/2025 AGUSTINANÍBAL LARASON [facility] [address] [place] [address] 02/25/2025 AGUSTINANÍBAL LARASON [facility] [address] [place] [address] 02/25/2025 AGUSTINANÍBAL LARASON [facility] [address] [place] [address] 02/17/2025 AGUSTINANÍBAL LARASON [facility] [address] [place] [address] 02/17/2025 XIOMARA [facility] [address] [place] [address] 02/09/2025 AGUSTINANÍBAL LARASON [facility] [address] [place] [address] 01/30/2025 AGUSTINANÍBAL LARASON [facility] [address] [place] [address] 01/26/2025 XIOMARA [facility] [address] [place] [address] 12/24/2024 AGUSTIN BRIAN [facility] [address] [place] [address] 11/25/2024 AGUSTIN BRIAN [facility] [address] [place] [address] 11/24/2024 AGUSTIN BRIAN Intractable low back pain M54.59 [facility] [address] [place] [address] 11/20/2024 AGUSTIN LARASON [facility] [address] [place] [address] 2024 AGUSTIN LARASON [facility] [address] [place] [address] 10/30/2024 AGUSTIN LARASON [facility] [address] [place] [address] 10/30/2024 AGUSTIN LARASON [facility] [address] [place] [address] 10/29/2024 AGUSTINANÍBAL LARASON [facility] [address] [place] [address] 10/27/2024 AGUSTINANÍBAL LARASON [facility] [address] [place] [phone] 10/27/2024 AGUSTINANÍBAL LARASON [facility] [address] [place] [address] 10/22/2024 AGUSTINANÍBAL LARASON [facility] [address] [place] [address] 10/22/2024 AGUSTINANÍBAL LARASON [facility] [address] [place] [address] 10/20/2024 AGUSTIN LARASON [facility] [address] [place] [phone] 10/20/2024 AGUSTINANÍBAL LARASON [facility] [address] [address] 10/20/2024 AGUSTINANÍBAL LARASON [address] [address] 10/17/2024 AGUSTIN BRIAN Sacroiliitis, not elsewhere classified M46.[address] [address] 04/30/2025 AGUSTIN LARASON [address] [address] 03/11/2025 AGUSTIN BRIAN Assessments Encounter Date Diagnosis (ICD Code) Assessment Notes Treatment Notes Treatment Clinical Notes Section Notes 05/05/2025 Essential hypertension (ICD-10 - I10) Labs ordered. Blood pressure under fair control. Continue losartan 100 mg once a day. Discussed diet, exercise and weight loss. She has lost weight since her last visit and continues to work on this. Recheck in 3 months. Return sooner as needed. 10/17/2024 Sacroiliitis, not elsewhere classified (ICD-10 - M46.1) 01/16/2025 Essential hypertension (ICD-10 - I10) Labs ordered. Continue losartan 100 mg daily. Follow-up in 3 months for recheck on blood pressure. If blood pressure remains elevated will need to consider adding medication. In the meantime patient will be working on diet and exercise as best as possible and continue to work on weight loss. Avoiding salt encouraged. 01/16/2025 Type 2 diabetes mellitus without complication, without long-term current use of insulin (ICD-10 - E11.9) Labs ordered. Not on current medication has been controlling with diet. Discussed diet and exercise and weight loss. Further treatment will be based on test results. Follow-up in 3 months. 10/16/2024 Essential hypertension (ICD-10 [...] weight loss. Recheck in 3 months. 05/05/2025 Type 2 diabetes mellitus without complication, without long-term current use of insulin (ICD-10 - E11.9) Labs ordered. Most recent hemoglobin A1c was 6.0. Discussed diet, exercise and continued weight loss. Encouraged good diabetic diet. Recheck in 3 months. 11/24/2024 Intractable low back pain (ICD-10 - M54.59) 11/04/2024 Sacroiliitis, not elsewhere classified (ICD-10 - [...] physiatry evaluation. Patient given FMLA paperwork. 11/04/2024 Intractable low back pain (ICD-10 - [...] physiatry evaluation. Patient given FMLA paperwork. 11/04/2024 Back pain with right-sided sciatica (ICD-10 - M54.31) See sacroiliitis plan. 05/05/2025 BMI 40.0-44.9, adult (ICD-10 - Z68.41) Labs ordered. Continues to work on weight loss with diet and trying to get some more exercise. Limited due to back issues. She has lost weight since her last visit. We will continue to monitor and recheck in 3 months. 10/16/2024 Mixed hyperlipidemia (ICD-10 - E78.2) Labs ordered. Discussed diet and exercise and continued weight loss. Will continue to monitor and adjust treatment as indicated. 01/16/2025 Mixed hyperlipidemia (ICD-10 - E78.2) Not on current statin. Last lipid panel showed elevation of LDL at 160 with elevated total cholesterol of 225. Labs ordered and further treatment can be based on test results. Discussed diet, exercise and weight loss. Will continue to monitor. 05/05/2025 Sacroiliitis, not elsewhere classified (ICD-10 - [...] showed no evidence of anemia. Currently stable. 10/16/2024 Morbid obesity due to excess calories (ICD-10 - E66.01) Patient continues with lifestyle modifications with 35 pound weight loss since her last visit. She continues to work on diet and exercise. We will continue to monitor and recheck in 3 months. 05/05/2025 Encounter for long-term (current) use of high-risk medication (ICD-10 - Z79.899) Urine drug screen ordered. Patient using medication appropriately at this time. We will continue to monitor and recheck in 3 months. 01/16/2025 BMI 40.0-44.9, adult (ICD-10 - Z68.41) [...] if needed. Follow-up after physiatry as needed. Plan Of Treatment Pending Test Test Name Order Date Sleep [...] 03/30/2022 COMP. METABOLIC 03/30/2022 Urine Microalbumin(Creat/MALB Ratio) Next Appt Details Provider Name:AGUSTIN MULLEN, 08/05/2025 01:00:00 PM, [address] [place], [address], Insurance Providers Payer Name Payer Address Payer Phone Subscriber Number Group Number Insured Name Patient Relationship to Insured Coverage Start Date Coverage End Date [employer] [address] [place] [address] [id number] MANJINDER VARGAS Self - patient is the insured 2021 Medical (General) History Medical History History ICD Code Genital Warts Gestational DM HSV-Oral Herpes Depression sleep apnea; wears CPAP and follows with Dr. Guillory elevated indirect bili; normal u/s. c/w Gilbert's syndrome depression hypertension impaired fasting glucose Surgical History Surgery Date(Month/Year) 2 C-Sections [place] teeth extraction Hospitalization History Reason Date(Month/Year)
== END 2025-06-09 14:40 | disposition home or self-care (01) ==
LOC: HO.HPHYS 14:15
PROVIDERS: PCP Physician Assistant; Visit Provider Physician Assistant
DX: M54.16 Radiculopathy, lumbar region (principal); M46.1 Sacroiliitis, not elsewhere classified
CPT/HCPCS: 99213